=== PATIENT | female | born 1950 | race Two or more races ===

== ENCOUNTER → 2017-09-01 | Outpatient (CLI) | payer MEDICARE, MEDICAID | END | disposition home or self-care (01) | LOC: CFH 10:31 | PROVIDERS: ATTEND Family Medicine | DX: Z12.31 Encounter for screening mammogram for malignant neoplasm of breast (principal) | CPT/HCPCS: 77063; 77067 ==

== ENCOUNTER → 2017-10-24 | Outpatient (CLI) | payer MEDICARE, MEDICAID | LOC: CFH 11:35 | PROVIDERS: ATTEND Family Medicine | DX: Z13.820 Encounter for screening for osteoporosis (principal); M85.58 Aneurysmal bone cyst, other site; N95.8 Other specified menopausal and perimenopausal disorders | CPT/HCPCS: 77080 ==

== ENCOUNTER → 2018-06-14 | Outpatient (CLI) | payer MEDICARE, MEDICAID ==
[~2018-06-14] MED LIST: OMNIPAQUE 350 MG/ML, 100ML BOTTLE ONE
== END | disposition home or self-care (01) ==
LOC: CFH 08:40
PROVIDERS: ATTEND Psychiatry & Neurology Neurology
DX: R42 Dizziness and giddiness (principal)
CPT/HCPCS: 70496; 70498; Q9967

== ENCOUNTER → 2018-12-26 | Outpatient (CLI) | payer OTHER, MEDICAID | END | disposition home or self-care (01) | LOC: CFH 11:14 | PROVIDERS: ATTEND Family Medicine | DX: Z12.31 Encounter for screening mammogram for malignant neoplasm of breast (principal) | CPT/HCPCS: 77067 ==

== ENCOUNTER 2019-08-12 14:57 | Observation (INO) | payer OTHER, MEDICAID ==
[~2019-08-12] VITALS: Ht 154.9 cm; Wt 64.3 kg
--- NOTE | 2019-08-12 15:20 | NUR ---
pt to ED w/ . CP started at [facility] approx 45 min ago. Pain under L breast. nonreproducible, nonradiating. vss. denies SOB. sts gets CP on and off sometimes. Dr. Ghosh in room for eval. nsr on monitor. call alvarez in reach.
--- NOTE | 2019-08-12 15:23 | NUR ---
pt anxious and intermittently crying.
[2019-08-12] MEDS ORDERED: ASPIRIN 81 MG TABLET CHEW PO ONE (15:30)
[2019-08-12] MEDS ORDERED: SODIUM CHLORIDE FLUSH 10ML SYR IVF ONE (15:30)
[2019-08-12] MEDS ORDERED: LORazepam 1MG TABLET PO ONE (15:30)
[2019-08-12] MEDS ORDERED: LORazepam 1MG TABLET ONE (15:36)
[2019-08-12] MEDS ORDERED: ASPIRIN 81 MG TABLET CHEW ONE (15:37)
[2019-08-12 15:50] LABS: BASOPHILS # (AUTO) 0.01 x10^3/uL (0-0.1); BASOPHILS % (AUTO) 0 % (0-1); EOSINOPHILS # (AUTO) 0.04 x10^3/uL (0-0.4); EOSINOPHILS % (AUTO) 1 % (1-7); LYMPHOCYTES # (AUTO) 2.76 x10^3/uL (1-3.4); LYMPHOCYTES % (AUTO) 41 % (22-44); MD NO; MEAN CORPUSCULAR HEMOGLOBIN 34.1 pg (27.0-34.8); MEAN CORPUSCULAR HGB CONC 33.6 g/dL (32.4-35.8); MEAN CORPUSCULAR VOLUME 101.7 fL (80-100); MONOCYTES # (AUTO) 0.48 x10^3/uL (0.2-0.8); MONOCYTES % (AUTO) 7 % (2-9); NEUTROPHILS # (AUTO) 3.42 x10^3/uL (1.8-6.8); NEUTROPHILS % (AUTO) 51 % (42-75); PLATELET COUNT 189 x10^3/uL (130-400); RED CELL DISTRIBUTION WIDTH 11.6 % (9.6-15.2)
[2019-08-12 15:56] LABS: ALANINE AMINOTRANSFERASE 31 U/L (12-78); ALBUMIN 3.9 g/dL (3.4-5.0); ANION GAP 6 mmol/L (5-15); CALCIUM 9.2 mg/dL (8.5-10.1); CHLORIDE 112 mmol/L (98-107)
--- NOTE | 2019-08-12 15:57 | NUR ---
meds per mar. pt to be admitted obs. pt aware and agrees. vss. denies cp/sob at this time. piv est. call alvarez in reach. NAD.
[2019-08-12 16:01] LABS: ALKALINE PHOSPHATASE 80 U/L (45-117); BILIRUBIN,TOTAL 0.6 mg/dL (0.2-1.0); TOTAL PROTEIN 7.5 g/dL (6.4-8.2); TROPONIN I < 0.015 ng/mL (0.000-0.045)
--- NOTE | 2019-08-12 16:11 | NUR ---
repeat ekg complete.
--- NOTE | 2019-08-12 16:57 | NUR ---
Hospitalist in room for eval. plan for admit, made aware of pt's anxiety.
--- NOTE | 2019-08-12 17:05 | NUR ---
oob to bathroom. nsr on monitor. vss. deneis cp/sob. c/o some anxiety. call alvarez in reach.
[2019-08-12] MEDS ORDERED: LISI5TAB7 PO (17:13)
[2019-08-12] MEDS ORDERED: FENO48TA17 PO (17:13)
[2019-08-12] MEDS ORDERED: ATOR40TA78 PO (17:13)
[2019-08-12] MEDS ORDERED: LEVO25TA4 PO (17:13)
[2019-08-12] MEDS ORDERED: ACETAMINOPHEN 325 MG TABLET PO PRN (17:30)
[2019-08-12] MEDS ORDERED: LORazepam 1MG TABLET PO PRN ×2 (17:30→21:30)
[2019-08-12] MEDS ORDERED: IBUPROFEN 600 MG TABLET PO PRN (17:30)
[2019-08-12] MEDS ORDERED: ONDANSETRON ODT 4 MG PO PRN (17:30)
[2019-08-12] MEDS ORDERED: HEPARIN 5,000 UNITS/ML, 1ML ONE (17:44)
[2019-08-12] MEDS: HEPARIN 5,000 UNITS/ML, 1ML SQ SCH (17:49)
--- NOTE | 2019-08-12 17:51 | NUR ---
GIVEN DINNER TRAY. AWAITING BED. NAD, CALL RIVAS IN REACH. VSS.
--- NOTE | 2019-08-12 18:39 | NUR ---
pt moved to room 18 will be tx after change of shift. vss. no change in condition. denies cp/sob but c/o some dizziness. callbell in reach. aware of POC.
--- NOTE | 2019-08-12 18:55 | NUR ---
report to Piter SANDOVAL.
--- NOTE | 2019-08-12 19:26 | NUR ---
Received report and assumed patient care. RN introduced self to patient. Patient standby assist to bathroom. RN called telemetry, awaiting return call after report.
[2019-08-12 20:55] VITALS: BP 104/65
[2019-08-12] MEDS ORDERED: ATORVASTATIN 40 MG TABLET PO SCH (21:00)
[2019-08-13 00:59] VITALS: BP_SYST 116; BP_SYST 93; BP_DIAS 57; BP_DIAS 71
[2019-08-13] MEDS: HEPARIN 5,000 UNITS/ML, 1ML SQ SCH ×2 (01:11→10:30)
[2019-08-13 03:39] LABS: ANION GAP 7 mmol/L (5-15); CALCIUM 9.3 mg/dL (8.5-10.1); CHLORIDE 111 mmol/L (98-107)
[2019-08-13 03:44] LABS: CREATININE 0.99 mg/dL (0.55-1.02); FREE T4 (FREE THYROXINE) 0.98 ng/dL (0.76-1.46); TROPONIN I < 0.015 ng/mL (0.000-0.045)
[2019-08-13] MEDS ORDERED: LEVOTHYROXINE 25 MCG TABLET ONE (06:15)
[2019-08-13 06:38] LABS: TROPONIN I < 0.015 ng/mL (0.000-0.045)
[2019-08-13] MEDS ORDERED: MECLIZINE CHEWABLE 25 MG TAB PO ONE (07:00)
[2019-08-13] MEDS ORDERED: REGADENOSON 0.4 MG/5 ML SYRINGE ONE (08:07)
[2019-08-13] MEDS ORDERED: LEVOTHYROXINE 25 MCG TABLET PO SCH (09:00)
[2019-08-13] MEDS ORDERED: LISINOPRIL 5 MG TABLET PO SCH (09:00)
[2019-08-13] MEDS ORDERED: SENNA/DOCUSATE TABLET PO SCH (09:00)
[2019-08-13 10:24] VITALS: BP 146/78
[2019-08-13] MEDS ORDERED: PARO10TA3 PO (12:26)
== END 2019-08-13 13:45 | disposition home or self-care (01) ==
LOC: ED 15:56 → INTOOBSV 16:57 → EDIP 16:57 → 5SO 19:51 → DCLOUNGE 08-13 13:28
PROVIDERS: ADMIT Family Medicine; ATTEND Family Medicine
DX: R07.9 Chest pain, unspecified (principal); F41.9 Anxiety disorder, unspecified; E78.5 Hyperlipidemia, unspecified; E03.9 Hypothyroidism, unspecified; I10 Essential (primary) hypertension; R42 Dizziness and giddiness; Z79.899 Other long term (current) drug therapy
CPT/HCPCS: 36415; 71045; 78452; 80048; 80053; 84439; 84443; 84484; 85025; 85379; 93005; 93017; 96372; 99284; A9502; G0378; J1644; J2785